=== PATIENT | male | born 1970 | race Caucasian/White ===

== ENCOUNTER 2016-10-02 19:03 | Emergency (ER) | payer BC ==
[2016-10-02 21:59] LABS: HEMOGLOBIN 14.6 gm/dl (14.0-17.5); RED BLOOD COUNT 4.52 M/UL (4.20-5.50); WHITE BLOOD COUNT 6.4 K/UL (4.5-11.0)
[2016-10-02 22:17] LABS: BUN/CREATININE RATIO 15 (0-10)
== END 2016-10-03 03:23 | disposition home or self-care (01) ==
LOC: ER1 19:03
PROVIDERS: Family Medicine
DX: R07.9 Chest pain, unspecified (principal); R00.2 Palpitations; Z88.0 Allergy status to penicillin; Z87.891 Personal history of nicotine dependence
CPT/HCPCS: 36415; 71010; 80053; 82550; 82553; 83874; 83880; 84443; 84484; 85025; 85379; 93005; 99285; G0480

== ENCOUNTER → 2016-10-31 | Outpatient (CLI) | payer BC | LOC: HEART 5 10-29 08:00 | DX: R07.9 Chest pain, unspecified (principal); R06.00 Dyspnea, unspecified | CPT/HCPCS: 78452; 93306; A9502 ==

== ENCOUNTER → 2021-10-10 | Outpatient (CLI) | payer BC | LOC: HEART 5 14:41 | DX: I34.0 Nonrheumatic mitral (valve) insufficiency (principal); R06.02 Shortness of breath | CPT/HCPCS: 93306 ==

== ENCOUNTER → 2021-11-20 | Outpatient (CLI) | payer BC | LOC: HEART 5 09:46 → EXRD 09:46 | DX: M54.2 Cervicalgia (principal); M47.812 Spondylosis without myelopathy or radiculopathy, cervical region | CPT/HCPCS: 72050 ==

== ENCOUNTER → 2022-02-04 | Day surgery (SDC) | payer BC ==
[~2022-02-04] MED LIST: CENTRUM SILVER1 EAC1 PO; LOPRESSOR 50 MG50 MG PO; PROBIOTIC250 MG PO
== END | disposition home or self-care (01) ==
LOC: OR 07:18
DX: Z12.11 Encounter for screening for malignant neoplasm of colon (principal); K57.30 Diverticulosis of large intestine without perforation or abscess without bleeding; N40.0 Benign prostatic hyperplasia without lower urinary tract symptoms; J44.9 Chronic obstructive pulmonary disease, unspecified; F17.210 Nicotine dependence, cigarettes, uncomplicated; E66.9 Obesity, unspecified; Z68.31 Body mass index [BMI] 31.0-31.9, adult; Z79.899 Other long term (current) drug therapy; Z88.0 Allergy status to penicillin; Z72.89 Other problems related to lifestyle
CPT/HCPCS: J2250; J3010